=== PATIENT | male | born 1945 | race Caucasian/White ===

== ENCOUNTER 2022-01-08 00:45 | Emergency (ER) | payer OTHER, MEDICARE, SELFPAY ==
[2022-01-08 00:54] VITALS: BP 162/72; PULSE 84; RESP 22; TEMP 36.6; O2SAT 99
[2022-01-08] MEDS: OXYMETAZOLINE NASAL SPRAY 15 ML 2 SPRAYS NASAL (02:45)
--- NOTE | 2022-01-08 02:48 | PC.NURSE ---
Pt arrived with nose clamp in place with cotton ball from home saturated in blood. removed from R nare and small clot noted on the interior of the R nare. Bleeding controlled at this time. afrin soaked cotton placed and pt ambulated without further bleeding or complication.
[2022-01-08 02:58] VITALS: BP 158/74; PULSE 80; RESP 16; O2SAT 97
--- NOTE | 2022-01-08 03:04 | ED.EPISTAXIS ---
HPI - Epistaxis General Chief complaint: Nasal Problem Stated complaint: Bloody nose that wont stop Time Seen by Provider: 01/08/22 01:13 Source: patient Mode of arrival: Ambulatory History of Present Illness HPI Narrative: 76-year-old male nonsmoker with history of skin cancer and prior Mohs surgery presents with a spontaneous nose bleed that was rather significant earlier in the day but now has slowed. He does not take any blood thinners. He states he blood the significant amount earlier and has been bit lightheaded. He denies any trauma or injury and states that he merely sneezed and started bleeding. 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 He is otherwise well and free of complaint Related Data Allergies Allergy/AdvReac Type Severity Reaction Status Date / Time No Known Drug Allergies Allergy Verified 01/08/22 00:58 Review of Systems Review of Systems Narrative: GENERAL: See HPI HEENT: See HP RESPIRATORY: Denies dyspnea, cough, wheezing, hemoptysis, sputum. CARDIOVASCULAR: Denies chest pain, palpitations, orthopnea, edema, GASTROINTESTINAL: Denies nausea, vomiting, abdominal pain, diarrhea, constipation, melena. : Denies dysuria, frequency, incontinence, hematuria, urinary retention. MUSCULOSKELETAL: denies weakness, joint pain, or bony pain SKIN: Denies rash, skin lesions, or other NEUROLOGIC: Denies weakness, headache, numbness, change in speech, confusion, seizures, incoordination. PSYCHIATRIC: No concerning psychosocial issues. 12 point review of systems is negative except for those stated above Exam Narrative Exam Narrative: GEN: AOx3 and in mild distress EYES: Pupils are equal, round, and reactive to light and accommodation. Extraoccular muscles are intact bilaterally. There is no subconjunctival hemorrhage or exudate. ENT: Patient presents with nasal clamp and fresh blood on the towel. One clamp is removed there are fresh clots noted, source of bleeding appears to be anterior nasal septum, very minimal active bleeding CHEST: Lungs are clear to auscultation bilaterally and free of wheezes, rales, or rhonchi. Heart rate is regular rhythm, there are no murmurs, clicks, rubs, or gallops. There is no chest wall tenderness. ABD: Abdomen is soft and nontender. There is no guarding or rebound. Bowel sounds are normal in all 4 quadrants. There is no mass or organomegaly. EXT: Full painless ROM of all extremities with no loss of sensation or strength. SKIN: Warm, pink, and dry. No erythema or rash Initial Vital Signs Initial Vital Signs: Vital Signs Temperature 97.9 F 01/08/22 00:54 Pulse Rate 84 01/08/22 00:54 Respiratory Rate 22 01/08/22 00:54 Blood Pressure 162/72 H 01/08/22 00:54 Pulse Oximetry 99 01/08/22 00:54 Procedures Epistaxis Control Nostril: right Nose Prepped With: oxymetazoline Direct Inspection: yes and anterior source identified Clots Removed by: suction Cautery Used: none Patient Tolerated Procedure: well Course Course Course Narrative: On initial exam clot removed and only minor bleeding noted, cotton ball soaked in Afrin placed with pressure for 20 minutes and patient was re-evaluated, no active bleeding noted. Patient was observed for bit more time, then ambulated to the department without recurrence of bleeding. Patient encouraged to replace cotton with Afrin until he gets home and given extensive return precautions Orders Ordered: Discontinued Medications Oxymetazoline HCl (Oxymetazoline Nasal [place] 15 Ml) 2 sprays NASAL NOW ONE Stop: 01/08/22 01:50 Last Admin: 01/08/22 02:45 Dose: 2 sprays Documented by: MARTÍN Silver Nitrate/Potassium Nitrate (Silver Nitrate Stick) 1 each TOP NOW ONE Stop: 01/08/22 01:50 Last Admin: 01/08/22 02:45 Dose: Not Given Documented by: MARTÍN Vital Signs Vital signs: Vital Signs - 8 hr 01/08/22 00:54 01/08/22 02:58 Temperature 97.9 F Pulse Rate 84 80 Respiratory Rate 22 16 Blood Pressure 162/72 H 158/74 H Pulse Oximetry 99 97 Discharge Plan Departure Patient Disposition: Home Clinical Impression: Epistaxis Instructions: DI for Nosebleed Activity Restrictions/Additional Instructions: *You have been diagnosed with [ acute anterior epistaxis ] *What to do: * do not blow your nose, stick your finger in her nose, or disturb nose for the next 24 hr. If you must sneeze please sneeze out your mouth like we talked about *Follow up with your primary care provider or ENT doctor in 2-3 days, call for an appointment. Let them know you were seen in the Emergency Department and that we ask that you be seen in follow up *Return to ER if you should have any new, worsening or concerning symptoms * if you are bleeding starts again at home please place a portion of a cotton ball in your nostril and squirt some of the Afrin you were given in your nose. Apply the nose clamp and uses a watch or o'clock to time yourself for 15 min. At the end 15 min recheck for bleeding, if you continue to bleed please repeat the process for another 15 min. If at the end of 30 min you still have bleeding you should return to the emergency department Referrals: Dustin Chris MD [Physician] -
== END 2022-01-08 03:07 | disposition home or self-care (01) ==
PROVIDERS: Emergency Provider Emergency Medicine
DX: R04.0 Epistaxis (principal)
CPT/HCPCS: 30901; 99283; A9270

== ENCOUNTER 2022-09-04 03:04 | Emergency (ER) | payer OTHER, MEDICARE, SELFPAY ==
[2022-09-04 03:10] VITALS: BP 182/77; PULSE 56; RESP 18; TEMP 36.5; O2SAT 100; BMI 27.3
--- NOTE | 2022-09-04 03:27 | DI.CT.S_ITS ---
PROCEDURE: CT ABDOMEN PELVIS W CON INDICATIONS: IV contrast only/right lower quadrant pain TECHNIQUE: After the administration of IV contrast, axial sections were acquired from the lung bases to the pubic symphysis. Coronal and sagittal reformats were performed. For radiation dose reduction, the following was used: automated exposure control, adjustment of mA and/or kV according to patient size. COMPARISON: Outside Film, NM, PET NECK TO MID THIGH, 11/20/2021, 14:44. Outside Film, CT, CT ABDOMEN PELVIS WITH CONTRAST, 11/20/2021, 15:14. FINDINGS: Image quality: Excellent. Lung bases: Unremarkable. Heart: No significant findings. Small hiatal hernia. ABDOMEN: Liver: Small cyst in the left lobe are unchanged. Gallbladder: Unremarkable. Biliary ducts: Unremarkable. Pancreas: Unremarkable. Spleen: Calcification at the superior spleen, unchanged. Adrenal Glands: No nodule. Kidneys and Ureters: Obstructing calculus in the mid right ureter measuring 0.3 cm, (2/52). There is minimal upstream hydroureter. There is mild right hydronephrosis with perinephric stranding. The right kidney enhancement is slightly diminished compared to the left. Probable bilateral peripelvic cysts. No additional kidney stones identified. Stomach and Bowel: Diverticulosis. No diverticulitis. The appendix is not dilated. No small bowel obstruction. Peritoneum: No abnormal intraperitoneal fluid. No free air. Ventral Wall: No hernia. Abdominal Nodes: No retroperitoneal or mesenteric adenopathy by size criteria. Vessels: No aortic aneurysm. Minimal ectasia. Extensive calcified and noncalcified atherosclerotic plaque. IVC is unremarkable. PELVIS: Pelvic Organs: Prostate fiducial markers. Bladder: Small bladder diverticuli. No bladder stone. Pelvic Nodes: No enlarged lymph nodes. Miscellaneous: No inguinal hernias are seen. Bones: No suspicious lesion identified. IMPRESSION: 1. Right mid ureter obstructing kidney stone measuring at 0.3 cm. Mild right hydronephrosis. 2. No additional kidney stones identified. This report is concordant with the overnight preliminary interpretation. Dictated by: Kareem Tilley M.D. on 09/04/2022 at 8:30 Approved by: Kareem Tilley M.D. on 09/04/2022 at 8:38
--- NOTE | 2022-09-04 03:28 | ED_ITS ---
HPI - Abdominal Pain General Chief Complaint: Abdominal Pain Stated Complaint: extreme lower back pain, abd pain, vomiting Time Seen by Provider: 09/04/22 03:21 Source: patient Mode of arrival: Ambulatory History of Present Illness HPI narrative: Patient brought here by from home for complaints of sudden-onset right lower quadrant pain with nausea and sweating that started 3 hours ago. Awoke him from his sleep. Went to bed without any complaints. Pain does radiate down to the right testicle area. At times pain with movement and sometimes with palpation. Does not radiate to the back. No syncope. No prior history of abdominal surgical history or kidney stones. No aortic abdominal aneurysm. Related Data Previous Rx's Medication Instructions Recorded hydrocodone 5 mg-acetaminophen 325 1 tab PO Q6H PRN pain #20 tabs 09/04/22 mg tablet hydrocodone 5 mg-acetaminophen 325 1 tab PO Q6H PRN pain #20 tabs 09/04/22 mg tablet ibuprofen 600 mg tablet 600 mg PO Q6H PRN fever or pain 09/04/22 #24 tabs ondansetron 4 mg disintegrating 4 mg PO Q8H PRN nausea and 09/04/22 tablet vomiting #15 tabs tamsulosin 0.4 mg capsule 0.4 mg PO DAILY #7 caps 09/04/22 Allergies Allergy/AdvReac Type Severity Reaction Status Date / Time No Known Drug Allergies Allergy Verified 01/08/22 00:58 Review of Systems Review of Systems Narrative: GENERAL: negative chills, fatigue, malaise, fever, positive sweats. HEENT: negative sinus pain, ear pain, sore throat RESPIRATORY: negative dyspnea, cough CARDIOVASCULAR: negative chest pain, palpitations GASTROINTESTINAL: Positive nausea, vomiting, abdominal pain : negative dysuria, frequency, hematuria MUSCULOSKELETAL: negative muscle or bony pain SKIN: negative rash, skin lesions NEUROLOGIC: negative weakness, numbness ROS Unobtainable: All systems reviewed & are unremarkable except as noted in HPI and below Patient History Social History Smoking Status: Never smoker Smoking Status: Never smoker alcohol intake frequency: holidays/special occasions only Substance Use Type: does not use Exam Narrative Exam Narrative: GENERAL: in no distress, not toxic not dyspneic HEAD: Normocephalic. EYES: Pupils equal round No scleral icterus. ENT: Mucous membranes moist. NECK: Trachea midline. CARDIOVASCULAR: Regular rate and rhythm without murmurs RESPIRATORY: Clear to auscultation. Breath sounds equal bilaterally. No wheezes, rales, or rhonchi. GASTROINTESTINAL: Abdomen soft, reproducible right lower quadrant tenderness. Positive McBurney point tenderness. No peritoneal signs. No pain out of proportion to exam. Bowel sounds are present. EXTREMITIES: No gross deformities. BACK: No flank tenderness. NEURO: AOx4. SKIN: Warm and dry PSYCH: Not anxious, is cooperative Initial Vital Signs Initial Vital Signs: Vital Signs Temperature 97.7 F 09/04/22 03:10 Pulse Rate 56 L 09/04/22 03:10 Respiratory Rate 18 09/04/22 03:10 Blood Pressure 182/77 H 09/04/22 03:10 Pulse Oximetry 100 09/04/22 03:10 Oxygen Delivery Method 09/04/22 03:10 Course Orders Ordered: Discontinued Medications Sodium Chloride (Normal Saline 0.9%) 1,000 mls @ 1,000 mls/hr IV BOLUS ONE Stop: 09/04/22 04:25 Last Infusion: 09/04/22 05:19 Dose: 0 mls/hr Documented By: Admin: 09/04/22 03:36 Dose: 1,000 mls/hr Documented By: LAURA Ketorolac Tromethamine (Ketorolac 30 Mg/Ml Vial) 15 mg IV NOW ONE Stop: 09/04/22 05:11 Last Admin: 09/04/22 05:19 Dose: 15 mg Documented By: LAURA Morphine Sulfate (Morphine 4 Mg/Ml Inj) 4 mg IV NOW ONE Stop: 09/04/22 03:27 Last Admin: 09/04/22 03:37 Dose: 4 mg Documented By: LAURA Ondansetron HCl (Ondansetron 4 Mg/2 Ml Inj) 4 mg IV NOW ONE Stop: 09/04/22 03:27 Last Admin: 09/04/22 03:36 Dose: 4 mg Documented By: ALURA Tamsulosin HCl (Tamsulosin 0.4 Mg Capsule) 0.4 mg PO NOW ONE Stop: 09/04/22 05:11 Last Admin: 09/04/22 05:19 Dose: 0.4 mg Documented By: LAURA Vital Signs Vital signs: Vital Signs - 8 hr 09/04/22 03:10 Temperature 97.7 F Pulse Rate 56 L Respiratory Rate 18 Blood Pressure 182/77 H Pulse Oximetry 100 Oxygen Delivery Method Room Air MDM - Abdominal Pain Lab Data 09/04/22 03:15 09/04/22 03:15 Labs: Lab Results 09/04/22 09/04/22 Range/Units 03:15 03:15 WBC 11.4 H (4.5-11.0) X10^3/uL RBC 4.07 L (4.5-5.9) X10^6/uL Hgb 13.0 L (13.5-17.5) g/dL Hct 38.0 L (41-53) % MCV 93.3 (80-100) fL MCH 31.8 (26-34) PG MCHC 34.1 (30-36) % RDW 13.5 (11.6-14.8) % Plt Count 199 (150-400) X10^3/uL Neut % (Auto) 85.0 H (50-75) % Lymph % (Auto) 7.6 L (25-40) % [place] % (Auto) 5.4 (3-14) % Eos % (Auto) 1.9 L (2-4) % Baso % (Auto) 0.1 (0-2) % Neut # (Auto) 9700 H (6081-0633) /uL Lymph # (Auto) 900 L (4798-1466) /uL [place] # (Auto) 600 (0-900) /uL Eos # (Auto) 200 (0-450) /uL Baso # (Auto) 0 (0-100) /uL Sodium 139 (137-145) mmol/L Potassium 4.4 (3.4-5.1) mmol/L Chloride 100 (98-107) mmol/L Carbon Dioxide 28 (22-32) mmol/L BUN 30 H (9-20) mg/dL Creatinine 0.98 (0.66-1.25) mg/dL Estimated GFR > 60 (>60) mL/min BUN/Creatinine Ratio 30.6 H (6-22) Glucose 324 H (80-110) mg/dL Calcium 9.7 (8.4-10.2) mg/dL Total Bilirubin 0.6 (0.2-1.3) mg/dL AST 32 (17-59) IU/L ALT 34 (<50) IU/L Alkaline Phosphatase 122 (38-126) U/L Total Protein 7.5 (6.3-8.2) g/dL Albumin 4.4 (3.5-5.0) g/dL Globulin 3.1 (1.7-4.1) g/dL Albumin/Globulin Ratio 1.4 (1.0-2.8) Imaging Data CT scan - abdomen/pelvis: Radiologist's Impression: Mild right hydro ureteral nephrosis and perinephric/periureteral inflammatory changes with an obstructing 3 mm mid ureteral calculus. Treatment and Disposition Social Determinants of Health that impact treatment or disposition: None Shared decision making:: Patient and MDM Narrative Medical decision making narrative: Patient brought here by from home for complaints of sudden-onset right lower quadrant pain with nausea and sweating that started 3 hours ago. Awoke him from his sleep. Went to bed without any complaints. Pain does radiate down to the right testicle area. At times pain with movement and sometimes with palpation. Does not radiate to the back. No syncope. No prior history of abdominal surgical history or kidney stones. No aortic abdominal aneurysm. After exam and history and evaluation. CBC CMP urinalysis CT abdomen and pelvis/IV contrast/Zofran morphine have been ordered. MDM CC: Abdominal pain Complicating co-morbidities: None Data collected from: Patient and Medical records reviewed: No previous visit for abdominal pain or CT scan imaging of abdomen and pelvis Differential considered: Includes but not limited to appendicitis/diverticulitis/cholecystitis/colitis/it perforated bowel/kidney stone/UTI Exam documented above, pertinent findings include: Reproducible McBurney point tenderness/right lower quadrant tenderness Lab Test results independently reviewed as above. Pertinent findings: Normal renal function on CMP, slight leukocytosis on CBC, 11.4 Imaging studies independently reviewed: Mild right hydro ureteral nephrosis and perinephric periureteral inflammatory changes with an 3 mm mid ureteral calculus. Treatments: Morphine normal saline Zofran Re-evaluations: Re-evaluate patient. Pain much better. In no distress. Discussion: Appropriate for discharge home. Exam and laboratory studies and imaging otherwise reassuring. Pain medication IV fluids provided. Patient able to provide urine sample. Return precautions reviewed with patient and . They desire discharge home. Patient already sees urologist at [facility] for his prostate. Dr. Almonte. Reviewed laboratory studies and imaging results with patient and . Diagnosis: Acute ureteral stone Disposition: see below, along with detailed discharge instructions that have been reviewed with patient as well as indications for ED re-evaluation and addit ional outpatient follow up Discharge Plan Departure Patient Disposition: Home Clinical Impression: Right ureteral stone Instructions: DI for Kidney Stones Activity Restrictions/Additional Instructions: No driving or operating machinery this morning or when taking prescribed pain medication. Prescriptions have been sent to your pharmacy to continue today. Pain medication prescription has been printed for you. See your urologist as scheduled. Be sure to filter/strain your urine to try to collect kidney stone to take to the office. Return if worse if any questions or concerns. Prescriptions: New hydrocodone-acetaminophen 5-325 mg tablet 1 tab PO Q6H PRN (Reason: pain) Qty: 20 0RF tamsulosin 0.4 mg capsule 0.4 mg PO DAILY Qty: 7 0RF ibuprofen 600 mg tablet 600 mg PO Q6H PRN (Reason: fever or pain) Qty: 24 0RF ondansetron 4 mg tablet,disintegrating 4 mg PO Q8H PRN (Reason: nausea and vomiting) Qty: 15 0RF hydrocodone-acetaminophen 5-325 mg tablet 1 tab PO Q6H PRN (Reason: pain) Qty: 20 0RF Referrals: Jensen Angeles MD [Primary Care Provider] - Stand Alone Forms: Patient Portal/API
[2022-09-04 03:33] LABS: Add Manual Diff / Slide Review NO; Basophils Absolute Auto 0 /uL (0-100); Basophils Percent Auto 0.1 % (0-2); Eosinophils Absolute Auto 200 /uL (0-450); Eosinophils Percent Auto 1.9 % (2-4); Lymphocytes Absolute Auto 900 /uL (1100-4500); Lymphocytes Percent Auto 7.6 % (25-40); Mean Corpuscular HGB Conc 34.1 % (30-36); Mean Corpuscular Hemoglobin 31.8 PG (26-34); Mean Corpuscular Volume 93.3 fL (80-100); Monocytes Absolute Auto 600 /uL (0-900); Monocytes Percent Auto 5.4 % (3-14); Neutrophils Absolute Auto 9700 /uL (1500-7000); Platelet Count 199 X10^3/uL (150-400); Red Blood Cell Count 4.07 X10^6/uL (4.5-5.9); Red Cell Distribution Width 13.5 % (11.6-14.8); White Blood Cell Count 11.4 X10^3/uL (4.5-11.0)
[2022-09-04] MEDS: SODIUM CHLORIDE 0.9% 1,000 ML 1000 ML IV (03:36)
[2022-09-04] MEDS: ONDANSETRON 4 MG/2 ML INJ IV (03:36)
[2022-09-04] MEDS: MORPHINE 4 MG/ML INJ IV (03:37)
[2022-09-04 03:40] LABS: Alanine Aminotransferase 34 IU/L (<50); Alkaline Phosphatase 122 U/L (38-126); Aspartate Aminotransferase 32 IU/L (17-59); BUN Creatinine Ratio 30.6 (6-22); Bilirubin Total 0.6 mg/dL (0.2-1.3); Blood Urea Nitrogen 30 mg/dL (9-20); Calcium 9.7 mg/dL (8.4-10.2); Carbon Dioxide 28 mmol/L (22-32); Chloride 100 mmol/L (98-107); Estimated Glomerular Filt Rate > 60 mL/min (>60); Glucose 324 mg/dL (80-110); Potassium 4.4 mmol/L (3.4-5.1); Sodium 139 mmol/L (137-145); Total Protein 7.5 g/dL (6.3-8.2)
[2022-09-04] MEDS: TAMSULOSIN 0.4 MG CAPSULE PO (05:19)
[2022-09-04] MEDS: KETOROLAC 30 MG/ML VIAL 15 MG IV (05:19)
[2022-09-05 16:59] LABS: Albumin 4.4 g/dL (3.5-5.0); Albumin Globulin Ratio 1.4 (1.0-2.8); Globulin 3.1 g/dL (1.7-4.1); HEMOLYSIS 24 (0-50)
== END 2022-09-04 05:58 | disposition home or self-care (01) ==
PROVIDERS: Emergency Provider Emergency Medicine; PCP Family Medicine
DX: N20.0 Calculus of kidney (principal)
CPT/HCPCS: 36415; 74177; 80053; 85025; 96361; 96374; 96375; 99284; J1885; J2270; J2405; Q9967

== ENCOUNTER 2023-02-06 18:05 | Emergency (ER) | payer OTHER, MEDICARE, SELFPAY ==
[2023-02-06] VITALS (17 sets, daily range): BP systolic 124–189; BP diastolic 58–85; PULSE 62–80; RESP 14–33; TEMP 36.8; O2SAT 98; BMI 26.6
--- NOTE | 2023-02-06 18:34 | DI.RAD.S_ITS ---
PROCEDURE: XR CHEST 1V INDICATIONS: chest pain TECHNIQUE: One view of the chest was acquired. COMPARISON: None. FINDINGS: Surgical changes and devices: Sternotomy wires and mediastinal clips are present. Lungs and pleura: Elevation of the right hemidiaphragm is of uncertain chronicity. There is horizontal atelectasis at the lung bases. No acute airspace opacity. No pleural effusion or pneumothorax. Mediastinum: Mediastinal contours appear normal. Heart size is normal. Bones and chest wall: No suspicious bony lesions. Overlying soft tissues appear unremarkable. Calcification projecting over the upper abdomen corresponds to prior splenic calcification. IMPRESSION: Elevation of the right hemidiaphragm and bibasilar atelectasis. No acute cardiopulmonary abnormality identified. Approved by: Sung Menjivar M.D. on 02/06/2023 at 20:09
[2023-02-06] MEDS: ASPIRIN 81 MG CHEW TAB 324 MG PO (18:54)
[2023-02-06 19:00] LABS: INR 1.2 (0.9-1.3); Prothrombin Time 14.1 SECONDS (10.1-12.7)
[2023-02-06 19:02] LABS: PTT Partial Thromboplastin Tim 27 SECONDS (26-36)
[2023-02-06 19:04] LABS: Alanine Aminotransferase 30 IU/L (<50); Albumin 4.2 g/dL (3.5-5.0); Albumin Globulin Ratio 1.3 (1.0-2.8); Alkaline Phosphatase 131 U/L (38-126); Aspartate Aminotransferase 29 IU/L (17-59); BUN Creatinine Ratio 27.2 (6-22); Bilirubin Total 0.5 mg/dL (0.2-1.3); Blood Urea Nitrogen 25 mg/dL (9-20); Calcium 9.2 mg/dL (8.4-10.2); Carbon Dioxide 27 mmol/L (22-32); Chloride 102 mmol/L (98-107); Creatine Kinase 83 U/L (55-170); Estimated Glomerular Filt Rate > 60 mL/min (>60); Globulin 3.3 g/dL (1.7-4.1); Glucose 149 mg/dL (80-110); HEMOLYSIS 29 (0-50); Lipase 135 U/L (23-300); Potassium 4.3 mmol/L (3.4-5.1); Sodium 137 mmol/L (137-145); Total Protein 7.5 g/dL (6.3-8.2)
[2023-02-06 19:06] LABS: Add Manual Diff / Slide Review NO; Basophils Absolute Auto 100 /uL (0-100); Basophils Percent Auto 1.1 % (0-2); Eosinophils Absolute Auto 300 /uL (0-450); Eosinophils Percent Auto 4.1 % (2-4); Hematocrit 32.2 % (41-53); Lymphocytes Absolute Auto 700 /uL (1100-4500); Lymphocytes Percent Auto 8.4 % (25-40); Mean Corpuscular HGB Conc 34.1 % (30-36); Mean Corpuscular Hemoglobin 32.4 PG (26-34); Mean Corpuscular Volume 95.2 fL (80-100); Monocytes Absolute Auto 600 /uL (0-900); Monocytes Percent Auto 7.2 % (3-14); Neutrophils Absolute Auto 6800 /uL (1500-7000); Neutrophils Percent Auto 79.2 % (50-75); Platelet Count 212 X10^3/uL (150-400); Red Blood Cell Count 3.39 X10^6/uL (4.5-5.9); Red Cell Distribution Width 15.2 % (11.6-14.8); White Blood Cell Count 8.6 X10^3/uL (4.5-11.0)
[2023-02-06 19:16] LABS: Troponin I < 0.012 ng/mL (0.01-0.034)
--- NOTE | 2023-02-06 21:58 | ED.CHESTPAIN ---
HPI - Chest Pain General Chief Complaint: Chest Pain Stated Complaint: Surgery recently, Chest pain Time Seen by Provider: 02/06/23 21:57 Source: patient and family Mode of arrival: Ambulatory Limitations: no limitations History of Present Illness HPI narrative: Patient is a 77-year-old male mild dementia, history of prostate cancer with chronic indwelling Mart catheter currently on Cipro for UTI started yesterday, recent 4 vessel CABG done at [facility] 22 days ago presents today with right-sided chest discomfort and leg weakness ongoing for 1 week. reports that for the last 1 week he is had difficulty ambulating for to the right leg shakes and his legs wobble he is unsteady. No change in mentation. Mostly happens movement. However today he is having increasing right-sided chest pain and shortness of breath when he walks. He appears comfortable now. He denies any fever or chills. Was seen by physician yesterday for prostate cancer who checked a urinalysis and started him on Cipro. He is currently afebrile. He is also at his baseline mental status per she is very pleasant and cooperative Related Data Previous Rx's Medication Instructions Recorded hydrocodone 5 mg-acetaminophen 325 1 tab PO Q6H PRN pain #20 tabs 09/04/22 mg tablet hydrocodone 5 mg-acetaminophen 325 1 tab PO Q6H PRN pain #20 tabs 09/04/22 mg tablet ibuprofen 600 mg tablet 600 mg PO Q6H PRN fever or pain 09/04/22 #24 tabs ondansetron 4 mg disintegrating 4 mg PO Q8H PRN nausea and 09/04/22 tablet vomiting #15 tabs tamsulosin 0.4 mg capsule 0.4 mg PO DAILY #7 caps 09/04/22 Allergies Allergy/AdvReac Type Severity Reaction Status Date / Time No Known Drug Allergies Allergy Verified 01/08/22 00:58 Review of Systems Review of Systems ROS Unobtainable: All systems reviewed & are unremarkable except as noted in HPI and below Patient History Social History Smoking Status: Never smoker Smoking Status: Never smoker alcohol intake frequency: holidays/special occasions only Substance Use Type: does not use Exam Initial Vital Signs Initial Vital Signs: Vital Signs Temperature 98.3 F 02/06/23 18:22 Pulse Rate 72 02/06/23 18:22 Respiratory Rate 18 02/06/23 18:22 Blood Pressure 127/70 02/06/23 18:22 Pulse Oximetry 98 02/06/23 18:22 Oxygen Delivery Method Room Air 02/06/23 18:22 GENERAL: Alert pleasant 77-year-old and in no acute distress. HEENT: Head atraumatic,EOMI, pupils reactive, face symmetric, moist mucous membranes CARDIOVASCULAR: Regular rate and rhythm without murmurs, rubs or gallops. RESPIRATORY: Breath sounds equal bilaterally, no wheezes rales or rhonchi. ABDOMEN: Soft, nontender. Normoactive bowel sounds all 4 quadrants. No guarding or rebound. : Mart catheter in place dark urine EXTREMITIES: Normal range of motion, no clubbing or edema. Neurovascularly intact NEUROLOGICAL: Alert and oriented x4.Normal gait and speech. Cranial nerves II through XII grossly intact. Good [id number] slight weakness in both lower extremities able to do civb-[id number] without assistance, legs do not drip to ground but obviously require more effort than more no dysarthria or aphasia, sensation in tact to soft touch bilaterally, no visual changes, no facial droop] SKIN: Incision site clean and dry healing no erythema or sign of infection Scores NIH Stroke Scale Level of Conciousness: Alert, keenly responsive Ask month/age: Answers both questions correctly. Open/close eyes, close hand: Performs both tasks correctly Best gaze horizontal: Normal Visual perez: No visual loss Facial palsy: Normal symetrical movement Left arm drift: No drift for full 10 sec Right arm drift: No drift for full 10 sec Left leg drift: No drift for full 5 sec Right leg drift: No drift for full 5 sec Limb ataxia: Absent Sensory on face/arms/legs: Normal, no sensory loss Best language: No aphasia, normal Dysarthria: Normal Extinction or inattention: No abnormality Total NIH Stroke scale score: 0 Course Orders Ordered: ED Orders 02/06/23 23:40 CT angio chest PE protocol Stat CT head/brain wo con Stat 02/07/23 00:00 Urinalysis and Microscopic Stat Urine Culture Stat Discontinued Medications Aspirin (Aspirin 81 Mg Chew Tab) 324 mg PO NOW ONE Stop: 02/06/23 18:35 Last Admin: 02/06/23 18:54 Dose: 324 mg Documented By: SB Vital Signs Vital signs: Vital Signs - 8 hr 02/06/23 21:30 02/06/23 21:31 02/06/23 21:31 Pulse Rate 64 64 Respiratory Rate 33 H 19 Blood Pressure 138/65 Pulse Oximetry Oxygen Delivery Method 02/06/23 22:00 02/06/23 22:00 02/06/23 22:30 Pulse Rate 67 63 Respiratory Rate 19 14 Blood Pressure 140/65 Pulse Oximetry Oxygen Delivery Method 02/06/23 22:31 02/06/23 22:31 02/06/23 23:00 Pulse Rate 65 62 Respiratory Rate 16 17 Blood Pressure 189/85 H Pulse Oximetry Oxygen Delivery Method 02/06/23 23:30 02/06/23 23:31 02/06/23 23:44 Pulse Rate 65 66 64 Respiratory Rate 23 19 20 Blood Pressure 171/77 H Pulse Oximetry Oxygen Delivery Method 02/07/23 00:31 02/07/23 02:08 02/07/23 02:31 Pulse Rate 69 67 65 Respiratory Rate 20 19 22 Blood Pressure 191/80 H 183/84 H 180/73 H Pulse Oximetry 98 98 Oxygen Delivery Method Room Air Room Air MDM - Chest Pain Lab Data 02/06/23 18:45 02/06/23 18:45 Labs: Lab Results 02/06/23 02/06/23 02/06/23 Range/Units 18:45 18:45 18:45 WBC 8.6 (4.5-11.0) X10^3/uL RBC 3.39 L (4.5-5.9) X10^6/uL Hgb 11.0 L (13.5-17.5) g/dL Hct 32.2 L (41-53) % MCV 95.2 (80-100) fL MCH 32.4 (26-34) PG MCHC 34.1 (30-36) % RDW 15.2 H (11.6-14.8) % Plt Count 212 (150-400) X10^3/uL Neut % (Auto) 79.2 H (50-75) % Lymph % (Auto) 8.4 L (25-40) % [place] % (Auto) 7.2 (3-14) % Eos % (Auto) 4.1 H (2-4) % Baso % (Auto) 1.1 (0-2) % Neut # (Auto) 6800 (0553-4393) /uL Lymph # (Auto) 700 L (9189-9890) /uL [place] # (Auto) 600 (0-900) /uL Eos # (Auto) 300 (0-450) /uL Baso # (Auto) 100 (0-100) /uL PT 14.1 H (10.1-12.7) SECONDS INR 1.2 (0.9-1.3) APTT 27 (26-36) SECONDS Sodium 137 (137-145) mmol/L Potassium 4.3 (3.4-5.1) mmol/L Chloride 102 (98-107) mmol/L Carbon Dioxide 27 (22-32) mmol/L BUN 25 H (9-20) mg/dL Creatinine 0.92 (0.66-1.25) mg/dL Estimated GFR > 60 (>60) mL/min BUN/Creatinine Ratio 27.2 H (6-22) Glucose 149 H (80-110) mg/dL Calcium 9.2 (8.4-10.2) mg/dL Magnesium 2.0 (1.6-2.3) mg/dL Total Bilirubin 0.5 (0.2-1.3) mg/dL AST 29 (17-59) IU/L ALT 30 (<50) IU/L Alkaline Phosphatase 131 H (38-126) U/L Total Creatine Kinase 83 (55-170) U/L CK-MB (CK-2) TNP CK-MB (CK-2) Rel Index TNP Troponin I < 0.012 (0.01-0.034) ng/mL Total Protein 7.5 (6.3-8.2) g/dL Albumin 4.2 (3.5-5.0) g/dL Globulin 3.3 (1.7-4.1) g/dL Albumin/Globulin Ratio 1.3 (1.0-2.8) Lipase 135 (23-300) U/L Urine Color Urine Appearance Urine pH (4.5-8.0) Ur Specific [place] (1.000-1.035) Urine Protein (Negative) Urine Glucose (UA) (Negative) g/dL Urine Ketones (NEGATIVE) Urine Occult Blood (Negative) Urine Nitrate (Negative) Urine Bilirubin (NEGATIVE) Urine Urobilinogen (0.2) E.U./dL Ur Leukocyte Esterase (NEGATIVE) Urine RBC (0-5/HPF) Urine WBC (0-5/HPF) Ur Squamous Epith Cells (0-5/HPF) Urine Bacteria (None) Ur Culture Indicated? 02/07/23 Range/Units 00:00 WBC (4.5-11.0) X10^3/uL RBC (4.5-5.9) X10^6/uL Hgb (13.5-17.5) g/dL Hct (41-53) % MCV (80-100) fL MCH (26-34) PG MCHC (30-36) % RDW (11.6-14.8) % Plt Count (150-400) X10^3/uL Neut % (Auto) (50-75) % Lymph % (Auto) (25-40) % [place] % (Auto) (3-14) % Eos % (Auto) (2-4) % Baso % (Auto) (0-2) % Neut # (Auto) (9626-6105) /uL Lymph # (Auto) (2877-2159) /uL [place] # (Auto) (0-900) /uL Eos # (Auto) (0-450) /uL Baso # (Auto) (0-100) /uL PT (10.1-12.7) SECONDS INR (0.9-1.3) APTT (26-36) SECONDS Sodium (137-145) mmol/L Potassium (3.4-5.1) mmol/L Chloride (98-107) mmol/L Carbon Dioxide (22-32) mmol/L BUN (9-20) mg/dL Creatinine (0.66-1.25) mg/dL Estimated GFR (>60) mL/min BUN/Creatinine Ratio (6-22) Glucose (80-110) mg/dL Calcium (8.4-10.2) mg/dL Magnesium (1.6-2.3) mg/dL Total Bilirubin (0.2-1.3) mg/dL AST (17-59) IU/L ALT (<50) IU/L Alkaline Phosphatase (38-126) U/L Total Creatine Kinase (55-170) U/L CK-MB (CK-2) CK-MB (CK-2) Rel Index Troponin I (0.01-0.034) ng/mL Total Protein (6.3-8.2) g/dL Albumin (3.5-5.0) g/dL Globulin (1.7-4.1) g/dL Albumin/Globulin Ratio (1.0-2.8) Lipase (23-300) U/L Urine Color Yellow Urine Appearance Clear Urine pH 7.0 (4.5-8.0) Ur Specific [place] 1.020 (1.000-1.035) Urine Protein Trace H (Negative) Urine Glucose (UA) Negative (Negative) g/dL Urine Ketones Negative (NEGATIVE) Urine Occult Blood 3+ H (Negative) Urine Nitrate Negative (Negative) Urine Bilirubin Negative (NEGATIVE) Urine Urobilinogen 0.2 (0.2) E.U./dL Ur Leukocyte Esterase 1+ H (NEGATIVE) Urine RBC 5-10/hpf H (0-5/HPF) Urine WBC 10-30/hpf H (0-5/HPF) Ur Squamous Epith Cells 1-5 /hpf (0-5/HPF) Urine Bacteria Few (2-10) H (None) Ur Culture Indicated? Specimen cultured Point of Care Testing Glucose POC 159 Urine Dip Bedside Urine Glucose Negative Bedside Urine Bilirubin - Negative Bedside Urine Ketone - Negative Urine Specific [place] 1.010 Bedside Urine Occult Blood +++ Bedside Urine pH 6.5 Bedside Urine Protein - Negative Bedside Urine Urobilinogen - Negative Bedside Urine Nitrite - Negative Bedside Urine Leukocytes +++ [address] scan - head: Radiologist's Impression: PROCEDURE:? CT HEAD/BRAIN WO CON ? INDICATIONS:? right leg weakness ? TECHNIQUE:? Noncontrast 4.5 mm thick angled axial sections acquired from the foramen magnum to the vertex, with coronal and sagittal reformats.? For radiation dose reduction, the following was used:? automated exposure control, adjustment of mA and/or kV according to patient size.? ? COMPARISON:? [facility], CR, XR CHEST 1V, 02/06/2023, 18:41.? [facility], CT, CT ANGIO CHEST PE PROTOCOL, 02/07/2023, 0:45. ? FINDINGS:? Image quality:? Excellent.? ? CSF spaces:? Basal cisterns are patent.? No extra-axial fluid collections.? The ventricles are symmetric in size and shape.? ? Brain:? No intracranial bleeds or masses.? There is cerebral volume loss for age, with resultant ventricular and sulcal prominence.? There are periventricular and deep white matter chronic small vessel ischemic changes.? Focal low density can be seen involving the right periventricular white matter within the posterior cerebral hemisphere There is intracranial internal carotid artery atherosclerosis.? ? Skull and face:? Calvarium and visualized facial bones appear intact, without suspicious lesions.? ? Sinuses:? Visualized sinuses and mastoids are clear.? ? IMPRESSION:? No acute intracranial hemorrhage is seen.? ? No acute intracranial process is seen.? ? 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 ? If there is strong clinical suspicion for an acute stroke, please consider a brain MRI for further evaluation, as it is more sensitive (assuming that there is no contraindication to MRI). ? ? Dictated by: Salomon Mao M.D. on 02/07/2023 at 0:30 ? ? CT scan - chest: Radiologist's Impression: PROCEDURE:? CT ANGIO CHEST PE PROTOCOL ? INDICATIONS:? right pain post cabg ? TECHNIQUE:? After the administration of intravenous contrast, 2 mm thick sections acquired from the pulmonary apices to the posterior costophrenic angles.? 3-dimensional maximum intensity projection (MIP) coronal and sagittal reformats were then acquired through the thorax.? For radiation dose reduction, the following was used:? automated exposure control, adjustment of mA and/or kV according to patient size.? ? COMPARISON:? [facility], CT, CT HEAD/BRAIN WO CON, 02/07/2023, 0:45.? [facility], CR, XR CHEST 1V, 02/06/2023, 18:41.? [facility], CT, CT ABDOMEN PELVIS W CON, 09/04/2022, 3:47.? Outside Film, NM, PET NECK TO MID THIGH, 11/20/2021, 14:44. ? FINDINGS:? Image quality:? Excellent.? ? Pulmonary arteries:? Pulmonary arteries are normal in size, and demonstrate no intraluminal filling defects to suggest central pulmonary embolism.? ? Lungs and pleura:? Mild dependent atelectasis can be seen.? No pleural effusions or pneumothorax.? Central and peripheral airways are patent.? ? Mediastinum:? Post CABG changes are seen.? Heart size is normal, without pericardial effusion.? No mediastinal or hilar adenopathy.? Thoracic aorta is normal in caliber and enhancement.? Esophagus is normal in caliber.? There is a small hiatal hernia.? ? Bones and chest wall:? Post sternotomy changes are seen, without bony bridging of the sternum.? No suspicious bony lesions.? Ribs and thoracic spine appear intact throughout.? Age-appropriate bony degenerative changes are seen.? Thyroid gland demonstrates no significant abnormality.? No axillary or supraclavicular adenopathy.? ? Abdomen:? Stable calcification can be seen along the anterior medial spleen. The visualized portions of the upper abdominal structures are otherwise unremarkable for imaging technique. ? ? IMPRESSION:? Negative for pulmonary embolism. ? No significant aortic abnormality is seen. ? Recent CABG changes. ? ? ? Additional findings:? Small hiatal hernia Stable calcification along the anterior medial spleen ? Dictated by: Salomon Mao M.D. on 02/07/2023 at 0:32 ?? Chest x-ray: Radiologist's Impression: PROCEDURE:? XR CHEST 1V ? INDICATIONS:? chest pain ? TECHNIQUE:? One view of the chest was acquired.? ? COMPARISON:? None. ? FINDINGS:? ? Surgical changes and devices:? Sternotomy wires and mediastinal clips are present. ? Lungs and pleura:? Elevation of the right hemidiaphragm is of uncertain chronicity.? There is horizontal atelectasis at the lung bases.? No acute airspace opacity.? No pleural effusion or pneumothorax. ? Mediastinum:? Mediastinal contours appear normal.? Heart size is normal.? ? Bones and chest wall:? No suspicious bony lesions.? Overlying soft tissues appear unremarkable.? Calcification projecting over the upper abdomen corresponds to prior splenic calcification. ? IMPRESSION:? Elevation of the right hemidiaphragm and bibasilar atelectasis.? No acute cardiopulmonary abnormality identified. ? ? ? Approved by: Sung Menjivar M.D. on 02/06/2023 at 20:09? ECG Data Interpretation: Normal sinus rhythm rate 68 HI interval 170 QRS [address] changes or T-wave inversions MDM Narrative Medical decision making narrative: Patient is 77-year-old male with recent 4 vessel CABG presenting today with right-sided chest discomfort and increasing leg weakness. reports that he actually does have some ongoing right-sided leg weakness that happened especially if he is tired it gets worse seems to be little bit worse now. Blood work is overall reassuring no elevation of troponin no leukocytosis. CT angio was done and ruled out pulmonary embolism. He has no evidence of congestive heart failure no signs of fluid overload. Head CT was done for leg weakness his NIH stroke scale is 0 although both legs appear weak. CT noncontrast head shows possible right hemisphere remote infarct. He is having more trouble on the right side this is unlikely to be related. Patient has no evidence of sepsis currently being treated with Cipro for UTI and indwelling Mart catheter. At this time he is only taken 1 or 2 doses of the antibiotic. No evidence of sepsis. Other blood work has been reviewed no other clinically significant abnormalities. Patient ambulated without any assistance walked quite quickly around the emergency department and did very well. At this time I recommend that he continue taking his Cipro which may be causing him to be slightly more weak. He can follow-up with his surgeon next week as scheduled. Right-sided chest pain today is likely secondary to surgery. Discharge Plan Departure Patient Disposition: Home Clinical Impression: Atypical chest pain Instructions: DI for Atypical Chest Pain Activity Restrictions/Additional Instructions: *You have been diagnosed with atypical chest pain *What to do: At this time workup in the ED is reassuring. Please follow-up with her cardiothoracic surgeon. *Continue to take medications as directed Please take ciprofloxacin as already prescribed *Follow up with your primary care provider in 2-3 days or call [phone] *Return to ER if you should have increasing pain, weakness, confusion or any new, worsening or concerning symptoms Prescriptions: No Action hydrocodone-acetaminophen 5-325 mg tablet 1 tab PO Q6H PRN (Reason: pain) Qty: 20 0RF tamsulosin 0.4 mg capsule 0.4 mg PO DAILY Qty: 7 0RF ibuprofen 600 mg tablet 600 mg PO Q6H PRN (Reason: fever or pain) Qty: 24 0RF ondansetron 4 mg tablet,disintegrating 4 mg PO Q8H PRN (Reason: nausea and vomiting) Qty: 15 0RF hydrocodone-acetaminophen 5-325 mg tablet 1 tab PO Q6H PRN (Reason: pain) Qty: 20 0RF Referrals: Jensen Angeles MD [Primary Care Provider] - Stand Alone Forms: Patient Portal/API
--- NOTE | 2023-02-06 22:14 | PC.NURSE ---
Pt's spouse asked to give home meds. approved long-acting insulin and spouse administered (after POC [id number]). Asked to wait on other PM meds.
--- NOTE | 2023-02-06 23:03 | PC.NURSE ---
Provided new leg bag for Mart catheter
--- NOTE | 2023-02-06 23:28 | PC.NURSE ---
Safe handoff report to CHANDAN Hanson. Pt resting comfortably, denies pain or other concerning symptoms
--- NOTE | 2023-02-06 23:40 | DI.CT.S_ITS ---
PROCEDURE: CT ANGIO CHEST PE PROTOCOL INDICATIONS: right pain post cabg TECHNIQUE: After the administration of intravenous contrast, 2 mm thick sections acquired from the pulmonary apices to the posterior costophrenic angles. 3-dimensional maximum intensity projection (MIP) coronal and sagittal reformats were then acquired through the thorax. For radiation dose reduction, the following was used: automated exposure control, adjustment of mA and/or kV according to patient size. COMPARISON: [facility], CT, CT HEAD/BRAIN WO CON, 02/07/2023, 0:45. [facility], CR, XR CHEST 1V, 02/06/2023, 18:41. [facility], CT, CT ABDOMEN PELVIS W CON, 09/04/2022, 3:47. Outside Film, NM, PET NECK TO MID THIGH, 11/20/2021, 14:44. FINDINGS: Image quality: Excellent. Pulmonary arteries: Pulmonary arteries are normal in size, and demonstrate no intraluminal filling defects to suggest central pulmonary embolism. Lungs and pleura: Mild dependent atelectasis can be seen. No pleural effusions or pneumothorax. Central and peripheral airways are patent. Mediastinum: Post CABG changes are seen. Heart size is normal, without pericardial effusion. No mediastinal or hilar adenopathy. Thoracic aorta is normal in caliber and enhancement. Esophagus is normal in caliber. There is a small hiatal hernia. Bones and chest wall: Post sternotomy changes are seen, without bony bridging of the sternum. No suspicious bony lesions. Ribs and thoracic spine appear intact throughout. Age-appropriate bony degenerative changes are seen. Thyroid gland demonstrates no significant abnormality. No axillary or supraclavicular adenopathy. Abdomen: Stable calcification can be seen along the anterior medial spleen. The visualized portions of the upper abdominal structures are otherwise unremarkable for imaging technique. IMPRESSION: Negative for pulmonary embolism. No significant aortic abnormality is seen. Recent CABG changes. Additional findings: Small hiatal hernia Stable calcification along the anterior medial spleen Dictated by: Salomon Mao M.D. on 02/07/2023 at 0:32 Approved by: Salomon Mao M.D. on 02/07/2023 at 0:35
--- NOTE | 2023-02-06 23:40 | DI.CT.S_ITS ---
PROCEDURE: CT HEAD/BRAIN WO CON INDICATIONS: right leg weakness TECHNIQUE: Noncontrast 4.5 mm thick angled axial sections acquired from the foramen magnum to the vertex, with coronal and sagittal reformats. For radiation dose reduction, the following was used: automated exposure control, adjustment of mA and/or kV according to patient size. COMPARISON: [facility], CR, XR CHEST 1V, 02/06/2023, 18:41. [facility], CT, CT ANGIO CHEST PE PROTOCOL, 02/07/2023, 0:45. FINDINGS: Image quality: Excellent. CSF spaces: Basal cisterns are patent. No extra-axial fluid collections. The ventricles are symmetric in size and shape. Brain: No intracranial bleeds or masses. There is cerebral volume loss for age, with resultant ventricular and sulcal prominence. There are periventricular and deep white matter chronic small vessel ischemic changes. Focal low density can be seen involving the right periventricular white matter within the posterior cerebral hemisphere There is intracranial internal carotid artery atherosclerosis. Skull and face: Calvarium and visualized facial bones appear intact, without suspicious lesions. Sinuses: Visualized sinuses and mastoids are clear. IMPRESSION: No acute intracranial hemorrhage is seen. No acute intracranial process is seen. 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 If there is strong clinical suspicion for an acute stroke, please consider a brain MRI for further evaluation, as it is more sensitive (assuming that there is no contraindication to MRI). Dictated by: Salomon Mao M.D. on 02/07/2023 at 0:30 Approved by: Salomon Mao M.D. on 02/07/2023 at 0:31
[2023-02-07 00:31] VITALS: BP 191/80; PULSE 69; RESP 20
[2023-02-07 00:48] LABS: Appearance Urine UA CLEAR; Bilirubin Urine UA NEGATIVE (NEGATIVE); Color Urine UA YELLOW; Glucose Urine UA NEGATIVE (Negative); Ketones Urine UA NEGATIVE (NEGATIVE); Leukocyte Esterase Urine UA 1+ (NEGATIVE); Nitrite Urine UA NEGATIVE (Negative); Occult Blood Urine UA 3+ (Negative); Protein Urine UA TRACE (Negative); Urobilinogen Urine UA 0.2 E.U./dL (0.2)
[2023-02-07 00:58] LABS: Bacteria Urine Few (2-10); Culture Indicated Urine Specimen Cultured; RBC Urine 5-10/HPF (0-5/HPF); Squamous Epithelial Cell Urine 1-5 /HPF (0-5/HPF); WBC Urine 10-30/HPF (0-5/HPF)
[2023-02-07 02:08] VITALS: BP 183/84; PULSE 67; RESP 19; O2SAT 98
[2023-02-07 02:31] VITALS: BP 180/73; PULSE 65; RESP 22; O2SAT 98
== END 2023-02-07 02:38 | disposition home or self-care (01) ==
PROVIDERS: Emergency Provider Emergency Medicine; PCP Family Medicine
DX: R07.89 Other chest pain (principal); R53.1 Weakness
CPT/HCPCS: 36415; 70450; 71045; 71275; 80053; 81001; 81003; 82550; 82962; 83690; 83735; 84484; 85025; 85610; 85730; 87086; 93005; 99284; Q9967

== ENCOUNTER 2023-03-02 11:35 | Observation (INO) | payer OTHER, MEDICARE, SELFPAY ==
[2023-03-02] VITALS (8 sets, daily range): BP systolic 112–165; BP diastolic 55–85; PULSE 56–75; RESP 13–23; TEMP 36–37.1; O2SAT 97–100; BMI 26.2
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
--- NOTE | 2023-03-02 11:54 | DI.RAD.S_ITS ---
PROCEDURE: XR CHEST 1V INDICATIONS: confusion TECHNIQUE: One view of the chest was acquired. COMPARISON: [facility], CR, XR CHEST 1V, 02/06/2023, 18:41. FINDINGS: Surgical changes and devices: Sternotomy. Lungs and pleura: Lungs are clear. No pleural effusions or pneumothorax. Mediastinum: Mediastinal contours appear normal. Heart size is normal. Bones and chest wall: No suspicious bony lesions. Overlying soft tissues appear unremarkable. IMPRESSION: No acute cardiopulmonary process. Dictated by: Say Rivera M.D. on 03/02/2023 at 12:45 Approved by: Say Rivera M.D. on 03/02/2023 at 12:45
--- NOTE | 2023-03-02 11:54 | DI.CT.S_ITS ---
PROCEDURE: CT HEAD/BRAIN WO CON INDICATIONS: confusion TECHNIQUE: Noncontrast 4.5 mm thick angled axial sections acquired from the foramen magnum to the vertex, with coronal and sagittal reformats. For radiation dose reduction, the following was used: automated exposure control, adjustment of mA and/or kV according to patient size. COMPARISON: [facility], CT, CT HEAD/BRAIN WO CON, 02/07/2023, 0:45. FINDINGS: Image quality: Excellent. CSF spaces: Basal cisterns are patent. No extra-axial fluid collections. The ventricles are symmetric in size and shape. Brain: No intracranial bleeds or masses. There is cerebral volume loss for age, with resultant ventricular and sulcal prominence. There are periventricular and deep white matter chronic small vessel ischemic changes. There is intracranial internal carotid artery atherosclerosis. Skull and face: Calvarium and visualized facial bones appear intact, without suspicious lesions. Sinuses: Visualized sinuses and mastoids are clear. IMPRESSION: No acute intracranial abnormality. Dictated by: Aman Murphy M.D. on 03/02/2023 at 12:45 Approved by: Aman Murphy M.D. on 03/02/2023 at 12:46
[2023-03-02 12:02] LABS: Add Manual Diff / Slide Review NO; Basophils Absolute Auto 0 /uL (0-100); Basophils Percent Auto 0.5 % (0-2); Eosinophils Absolute Auto 200 /uL (0-450); Eosinophils Percent Auto 3.4 % (2-4); Hematocrit 33.4 % (41-53); Hemoglobin 11.2 g/dL (13.5-17.5); Lymphocytes Absolute Auto 600 /uL (1100-4500); Lymphocytes Percent Auto 11.9 % (25-40); Mean Corpuscular HGB Conc 33.6 % (30-36); Mean Corpuscular Hemoglobin 31.7 PG (26-34); Mean Corpuscular Volume 94.3 fL (80-100); Monocytes Absolute Auto 400 /uL (0-900); Monocytes Percent Auto 7.3 % (3-14); Neutrophils Absolute Auto 4100 /uL (1500-7000); Neutrophils Percent Auto 76.9 % (50-75); Platelet Count 198 X10^3/uL (150-400); Red Blood Cell Count 3.54 X10^6/uL (4.5-5.9); White Blood Cell Count 5.4 X10^3/uL (4.5-11.0)
[2023-03-02 12:05] LABS: Appearance Urine UA CLOUDY; Bilirubin Urine UA NEGATIVE (NEGATIVE); Color Urine UA YELLOW; Glucose Urine UA NEGATIVE (Negative); Ketones Urine UA TRACE (NEGATIVE); Leukocyte Esterase Urine UA 2+ (NEGATIVE); Nitrite Urine UA NEGATIVE (Negative); Occult Blood Urine UA 3+ (Negative); Protein Urine UA 3+ (Negative); Specific Gravity Urine UA 1.025 (1.000-1.035)
[2023-03-02 12:10] LABS: Alanine Aminotransferase 40 IU/L (<50); Albumin 4.3 g/dL (3.5-5.0); Albumin Globulin Ratio 1.4 (1.0-2.8); Alkaline Phosphatase 109 U/L (38-126); Aspartate Aminotransferase 38 IU/L (17-59); BUN Creatinine Ratio 37.3 (6-22); Bilirubin Total 0.3 mg/dL (0.2-1.3); Blood Urea Nitrogen 31 mg/dL (9-20); Calcium 9.5 mg/dL (8.4-10.2); Carbon Dioxide 27 mmol/L (22-32); Chloride 104 mmol/L (98-107); Creatine Kinase 273 U/L (55-170); Estimated Glomerular Filt Rate > 60 mL/min (>60); Glucose 157 mg/dL (80-110); HEMOLYSIS < 15 (0-50); Lactate (Lactic Acid) 1.3 mmol/L (0.7-2.1); Potassium 4.2 mmol/L (3.4-5.1); Sodium 139 mmol/L (137-145); Total Protein 7.3 g/dL (6.3-8.2)
[2023-03-02 12:11] LABS: Bacteria Urine Moderate (10-30); Culture Indicated Urine Specimen Cultured; RBC Urine 10-30/HPF (0-5/HPF); Squamous Epithelial Cell Urine None Seen (0-5/HPF); WBC Urine >100/HPF (0-5/HPF)
[2023-03-02 12:22] LABS: Troponin I < 0.012 ng/mL (0.01-0.034)
[2023-03-02 12:27] LABS: Procalcitonin 0.05 ng/mL (<0.5)
[2023-03-02] MEDS: cefTRIAXone 1,000 MG in SODIUM CHLORIDE 0.9% 100 ML 200 MG IV (12:38)
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
[2023-03-02 13:42] LABS: Adenovirus Not Detected (Not Detect); B. parapertussis Not Detected (Not Detecte); Bordetella pertussis Not Detected (Not Detecte); Chlamydophila pneumoniae Not Detected (Not Detect); Coronavirus 229E Not Detected (Not Detect); Coronavirus HKU1 Not Detected (Not Detect); Coronavirus NL 63 Not Detected (Not Detect); Coronavirus OC43 Not Detected (Not Detect); Human Metapneumovirus Not Detected (Not Detect); Human Rhinovirus/Enterovirus Not Detected (Not Detect); Influenza A Not Detected (Not Detect); Influenza B Not Detected (Not Detect); Mycoplasma pneumoniae Not Detected (Not Detect); Parainfluenza Virus 1 Not Detected (Not Detect); Parainfluenza Virus 2 Not Detected (Not Detect); Parainfluenza Virus 3 Not Detected (Not Detect); Parainfluenza Virus 4 Not Detected (Not Detect); Respiratory Syncytial Virus Not Detected (Not Detect); SARS- CoV-2 Not Detected (Not Detecte)
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
--- NOTE | 2023-03-02 16:58 | PC.NURSE ---
Old Mart catheter taken out and replaced with 16f catheter. Patient tolerated well.
[2023-03-02] MEDS: INSULIN LISPRO 100 UNIT/ML 3ML VIAL SUBCUT (17:03)
--- NOTE | 2023-03-02 18:23 | PC.NURSE ---
Day shift: Pt admitted to the floor at 1410. Pt A&Ox2. Unaware of why he is here or what date/year it is. Pt follows directions well from . Mart changed per MD Barba's order. Pt came in with chronic Mart. Changed to hospital Mart. Pt tolerated well. Pt denies pain. BG 176. Insulin given. Spoke with pharmacist Mervin and he changed his nighttime medications to 1800 per his 's request. Will continue to monitor.
[2023-03-02] MEDS: MELATONIN 3 MG TABLET PO (18:48)
[2023-03-02] MEDS: DIVALPROEX ER 250 MG TAB PO (18:48)
[2023-03-02] MEDS: MIRTAZAPINE 15 MG TABLET 7.5 MG PO (18:48)
[2023-03-02] MEDS: INSULIN GLARGINE 100 UNIT/ML 3ML PEN 14 UNIT SUBCUT (18:49)
[2023-03-03 05:29] LABS: Add Manual Diff / Slide Review NO; Basophils Absolute Auto 0 /uL (0-100); Basophils Percent Auto 0.5 % (0-2); Eosinophils Absolute Auto 500 /uL (0-450); Eosinophils Percent Auto 7.1 % (2-4); Hematocrit 34.2 % (41-53); Hemoglobin 11.6 g/dL (13.5-17.5); Lymphocytes Absolute Auto 500 /uL (1100-4500); Lymphocytes Percent Auto 7.5 % (25-40); Mean Corpuscular Volume 94.2 fL (80-100); Monocytes Absolute Auto 400 /uL (0-900); Neutrophils Absolute Auto 5500 /uL (1500-7000); Neutrophils Percent Auto 78.9 % (50-75); Platelet Count 176 X10^3/uL (150-400); Red Blood Cell Count 3.63 X10^6/uL (4.5-5.9)
[2023-03-03 05:48] LABS: Alanine Aminotransferase 35 IU/L (<50); Albumin 3.5 g/dL (3.5-5.0); Albumin Globulin Ratio 1.2 (1.0-2.8); Alkaline Phosphatase 87 U/L (38-126); Aspartate Aminotransferase 32 IU/L (17-59); BUN Creatinine Ratio 31.9 (6-22); Bilirubin Total 0.3 mg/dL (0.2-1.3); Blood Urea Nitrogen 23 mg/dL (9-20); Calcium 8.7 mg/dL (8.4-10.2); Carbon Dioxide 27 mmol/L (22-32); Chloride 106 mmol/L (98-107); Estimated Glomerular Filt Rate > 60 mL/min (>60); Glucose 112 mg/dL (80-110); HEMOLYSIS < 15 (0-50); Potassium 3.9 mmol/L (3.4-5.1); Sodium 138 mmol/L (137-145); Total Protein 6.5 g/dL (6.3-8.2)
[2023-03-03 06:05] LABS: Procalcitonin 0.05 ng/mL (<0.5)
[2023-03-03 06:25] LABS: C-Reactive Protein Quant < 0.5 mg/dL (<1.0)
[2023-03-03] MEDS: ATORVASTATIN 20 MG TABLET 80 MG PO (08:11)
[2023-03-03] MEDS: METFORMIN XR 500 MG TABLET PO (08:11)
[2023-03-03] MEDS: TAMSULOSIN 0.4 MG CAPSULE PO (08:11)
[2023-03-03 08:12] VITALS: BP 109/52; PULSE 76
[2023-03-03] MEDS: METOPROLOL ER 50 MG TABLET PO (08:12)
[2023-03-03] MEDS: ASPIRIN 81 MG CHEW TAB 162 MG PO (08:15)
[2023-03-03] MEDS: INSULIN LISPRO 100 UNIT/ML 3ML VIAL SUBCUT ×3 (08:16→17:09)
--- NOTE | 2023-03-03 08:52 | PM.PN.1 ---
Subjective Subjective Interval history: Patient had sundowning requiring haldol overnight. This morning his is present and he is much more calm. Exam Vital Signs (past 8 hours): Oxygen Delivery Method Room Air Oxygen Flow Rate 0 Narrative Exam Narrative: GENERAL:? Alert pleasant 77-year-old male and in no acute distress. Demented. HEENT: Head atraumatic,EOMI, pupils reactive, face symmetric, moist mucous membranes CARDIOVASCULAR: Regular rate and rhythm without murmurs, rubs or gallops. RESPIRATORY: Breath sounds equal bilaterally, no wheezes rales or rhonchi. ABDOMEN: Soft, nontender.? Normoactive bowel sounds all 4 quadrants.? No guarding or rebound. :? Indwelling [place] catheter EXTREMITIES: Normal range of motion, no clubbing or edema.? Neurovascularly intact NEUROLOGICAL: Alert and oriented x1. Normal gait and speech. Cranial nerves II through XII grossly intact. Normal sensation of all extremities. SKIN: Warm, dry, no laceration, no petechiae, no rashes or lesions. Objective Labs 03/03/23 04:45 03/03/23 04:45 [facility] Social History household members: spouse Smoking Status: Never smoker Assessment & Plan Assessment & Plan narrative: 1. CAUTI with noncompliance of oral medication, acute, present on admission. UTI with chronic Hassan in place. Urine culture positive for pseudomonas. Given dose of fosfomycin and hassan exchanged. 2. Concern for sepsis, ruled out. Acute, present on admission. Blood cultures negative. 3. Delirium in setting of Alzheimer's. Delirium is acute on chronic Alzheimer, present on admission. Continue patient's regular medications for Alzheimer's which consists of Depakote and mirtazapine as well as melatonin. Patient's arranging memory care facilities. 4. Diabetes. Diabetes is chronic however, poor control is acute present on admission. Provide patient's regular medication of metformin and glargine. Also have sliding scale insulin. Measure hemoglobin A1c. 5. Decreased hearing. Chronic. Present on admission. will bring in hearing aids. DVT prophylaxis: Enoxaparin 40 mg subQ daily Code status: Full Surrogate decision makers: Patient's . Dispo: Home with on 03/04. COVID-19 Result date/Date tested (Pos, Neg/Pending): 03/02/23 Quality VTE Deep Vein Thrombosis/Pulmonary Embolism Present on Admission: No
[2023-03-03] MEDS: cefTRIAXone 2,000 MG in SODIUM CHLORIDE 0.9% 100 ML 200 MG IV (09:44)
--- NOTE | 2023-03-03 11:04 | PT.IIE ---
Current Diagnoses Sepsis, unspecified organism (03/02/23) Physical Therapy Inpatient Evaluation/Re-Eval M1 PT/OT-IP Prior Functional Status Start: 03/03/23 11:53 Freq: NEEDED Status: Active Protocol: Document 03/03/23 11:04 AB (Rec: 03/03/23 12:00 AB [id number]) Medical Review Prior Functional Status Medical History Reviewed Yes Communication able to make needs known; with confusion; pt has dx of vacular dementia Mobility and Gait pt stated that he is independent with all mobilities and ambulation without AD indoors/outdoors but occasionally uses a SPC/ FWW for outdoor mobility per spouse: has h/o falls and last fall ~ 2 months ago Social History Household Members spouse Living Arrangements House Number of Floors (Floors) Two Floors Number of Stairs To Enter/Railing? pt stated that he can stay on main level of the house no steps to enter Home Environment Standard Height Toilet,Walk in Shower,Built-In Shower Seat Home Equipment Front Wheel Walker,Straight Cane,Hand Held Shower,Grab Bars Near Toilet,Grab Bars In Shower M2 PT-IP Current Condition Start: 03/03/23 11:53 Freq: NEEDED Status: Active Protocol: Document 03/03/23 11:04 AB (Rec: 03/03/23 12:[facility] Physical Therapy Current Condition Current Condition Evaluation Date 03/03/23 Treatment Diagnosis UTI; AMS; vacular dementia; difficulty in walking Onset Date 03/02/23 M3 PT-IP Subjective Start: 03/03/23 11:53 Freq: NEEDED Status: Active Protocol: Document 03/03/23 11:04 AB (Rec: 03/03/23 12:00 AB [email or web address]) Subjective Physical Therapy Visit Type Type Initial Evaluation Visit Start Time 11:04 Visit Stop Time 11:33 Total Visit Minutes 29 Number of CAN SLIDER Visits 0 Physical Therapy Visit Comments Patient Comments agreeable to do PT Therapy Pain Assessment Pain Present Pain Present Denied Pain M4 PT-IP Mobility and Gait Start: 03/03/23 11:53 Freq: NEEDED Status: Active Protocol: Document 03/03/23 11:04 AB (Rec: 03/03/23 12:00 AB [email or web address]) PT-Bed Mobility Assessment Supine to Sit Supine to Sit Standby Assistance PT-Transfer Assessment Sit to and From Stand Sit to and from Stand Contact Guard Assistance Equipment Transfer Assistive Device None,Front Wheeled Walker Orthotic/Prosthetic Devices or Brace: No Transfers Transfer Destination Chair Transfer Technique ambulated Transfer Ability Level of Assist Contact Guard Assistance,1 Person Assistance,Use of Upper Extremities Comments Mobility Comments pt with confusion but able to provide PLOF and home set up but questionnable accuracy. spouse came in mid PT session and confirm some info given by pt. Pt has vascular dementia and does not recognize his spouse. completed supine to sit SBA. able to sit on EOB SBA. sit to stand SBA and ambulated in room using FWW SBA to CGA ~ 40 ft. CGA during turning as pt can be impulsive and unsteady . assessed ambulation without AD and completed ~ 30 ft CGA with (+) LOB during turning and RLE crossing midline requiring CGA for steadiness and safety. pt agreed to sit up on the chair. positioned on chair with chair alarm on. call light and table placed within reach. Gait Assessment Gait Gait Assistance Required: Standby Assistance,Contact Guard Assist Distance (Feet) 40 Able to Maintain Weight Bearing Status Yes During Gait Assistive Devices Assistive Device None,Gait Belt,Front Wheeled Walker Orthotic/Prosthetic Devices or Brace: No Gait Deviations General Gait Pattern Decreased Stride Length, Decreased Feet Clearance Factors Limiting Gait Function Factors Limiting Gait Function Difficulty Following Directions,Poor Balance,Poor Safety Awareness PT-Balance Assessment Sitting Balance and Reactions Static Sitting Balance Ability Normal Dynamic Sitting Balance Ability Good Standing Balance and Reactions Static Standing Balance Ability Good Dynamic Standing Balance Ability Fair Device Used without AD M5 PT-IP Objective Assessments Start: 03/03/23 11:53 Freq: NEEDED Status: Active Protocol: Document 03/03/23 11:04 AB (Rec: 03/03/23 12:00 AB [email or web address]) Orientation Orientation/Cognition Level of Alertness Confusional State Orientation Name,Place Safety Awareness Decreased Safety Awareness Memory Description Short Term Impaired,Mcc Impaired Gross Range of Motion Lower Extremity ROM Assessment Within Functional Limits Strength Lower Extremity Strength Assessment Within Functional Limits Sensation Assessment Sensation Gross Sensation WNL Muscle Tone Muscle Tone WNL Yes M6 PT-IP Treatment Start: 03/03/23 11:53 Freq: NEEDED Status: Active Protocol: Document 03/03/23 11:04 AB (Rec: 03/03/23 12:00 AB [email or web address]) Physical Therapy Treatment Education Education Provided Safety M7 PT-IP Assessment and Plan Start: 03/03/23 11:53 Freq: NEEDED Status: Active Protocol: Document 03/03/23 11:04 AB (Rec: 03/03/23 12:00 AB [id number]) PT Summary Assessment and Plan Potential Rehabilitation Potential Fair Status of Condition at Evaluation Evolving Summary Impairments Balance,Coordination,Cognition ,Bed Mobility,Transfers,Gait, Activity Tolerance Assessment Summary pt requiring SBA to CGA with ambulation using FWW and CGA without AD with (+) LOB. Recommending use of FWW at this time. spouse will be able to assist pt at home. will continue to assess progress. Goals Bed Mobility Goal Independent Transfer Goal Independent,Cane,Front Wheeled Walker Gait Goal Independent,Cane,Front Wheel Walker Gait Distance 300 Days to Meet Goals 5 Frequency of Treatment Frequency Of Treatment Once a Day Treatment Plan Physical Therapy Treatment Plan Bed Mobility Training,Transfer Training,Gait Training, Therapeutic Exercise,Balance Retraining,Discharge Planning, Hot or Cold Pack,Neuromuscular Re-ed,Coordination Retraining Precautions Other Precautions falls Recommendations To Nursing Amount of Assist Needed 1 Person Assist Discharge Recommendations PT Discharge Recommendations Home with Assistance Transportation Needs at Discharge Private Vehicle
[2023-03-03] MEDS: MULTIVITAMIN 1 TABLET 1 TAB PO (11:56)
--- NOTE | 2023-03-03 12:04 | CM.DPC ---
DCP Cont: Met with patient's spouse in a private waiting area, as attempted to discuss care needs in front of patient, but was getting agitated, calls his spouse Pankaj. Spouse, Kimber, has had hired caregivers in the home, Eve Guajardo, but due to agitation, and fear of behaviors by caregiver, came to the hospital. Patient is currently being treated for UTI. Spouse is employed at the [employer], but is on [place] looking for memory care for her spouse. So far,she has meetings tomorrow, with [facility] (she asked if records could be sent), asked Hina to send over referral. She is also looking into [facility] (has a waiting list). Let her know that patient most likely will be medically ready for discharge tomorrow, she is aware. Her plans are to have her neighbor stay with patient while she goes and tours these facilities. Discussed home health, stated, patient did have [facility], was supposed to see their DOUBLE CUTTER. Let her know that this DC Mobile Designer can send a referral over to [facility]. Spouse was hoping that they could remove catheter while he is here to see if he can void, since they were supposed to do that at his urology appointment next week with Dr. Almonte. Let her know that this DC Mobile Designer can ask hospitalist. Spoke to Dr. Rhodes, is prepared to remove catheter today to see if he can void. Let him know that there is a plan for patient to go home tomorrow with [facility], but that spouse is continuing to tour facilities. P: DCP to continue to follow. Plan is home tomorrow if medically stable with [facility]. Alejandra Thomason RN/Hoof And Shoe Inspector
[2023-03-03 14:00] VITALS: BP 123/69; PULSE 76; RESP 20; TEMP 36.9; O2SAT 97
[2023-03-03] MEDS: DIVALPROEX ER 250 MG TAB PO (19:25)
[2023-03-03] MEDS: QUETIAPINE 25 MG TABLET PO (19:25)
[2023-03-03] MEDS: MELATONIN 3 MG TABLET PO (19:25)
[2023-03-03] MEDS: MIRTAZAPINE 15 MG TABLET 7.5 MG PO (19:26)
[2023-03-03] MEDS: INSULIN GLARGINE 100 UNIT/ML 3ML PEN 14 UNIT SUBCUT (19:28)
[2023-03-03 21:49] VITALS: BP 131/70; PULSE 78; RESP 18; TEMP 36.4; O2SAT 97
[2023-03-03] MEDS: HALOPERIDOL 5 MG/ML VIAL IV (23:45)
[2023-03-04] MEDS: HALOPERIDOL 5 MG/ML VIAL 2 MG IV ×4 (00:04→14:15)
[2023-03-04 06:00] VITALS: BMI 26.2
[2023-03-04 09:00] VITALS: BP 159/72; PULSE 74; RESP 18; TEMP 36.4; O2SAT 99
[2023-03-04] MEDS: TAMSULOSIN 0.4 MG CAPSULE PO (09:37)
[2023-03-04] MEDS: ENOXAPARIN 40 MG/0.4 ML SYRINGE SUBCUT (09:37)
[2023-03-04] MEDS: MULTIVITAMIN 1 TABLET 1 TAB PO (09:38)
[2023-03-04] MEDS: FOSFOMYCIN 3 GM PACKET PO (09:38)
[2023-03-04] MEDS: METFORMIN XR 500 MG TABLET PO (09:38)
[2023-03-04] MEDS: ATORVASTATIN 20 MG TABLET 80 MG PO (09:38)
[2023-03-04] MEDS: ASPIRIN 81 MG CHEW TAB 162 MG PO (09:38)
[2023-03-04 09:39] VITALS: BP 159/72; PULSE 71
[2023-03-04] MEDS: METOPROLOL ER 50 MG TABLET PO (09:39)
--- NOTE | 2023-03-04 11:47 | CM.DPC ---
DCP Cont: Patient is discharging home today. Called [facility], and left Jeannie Durand a message. Referral was sent yesterday, they can accept. Patient will get RN, P.T, O.T, SENIOR COUNSEL [employer]. Mart was re-inserted, attempted to see if he could void without it, and was unable. Patient was agitated, combative, during insertion. Had a one on one sitter this morning. Spouse is touring several of the memory care facilities today. She will have her neighbor stay with patient while she does this. Sent Anyannie Cárdenasmatt the referral yesterday. P: Patient is discharging home with [facility] today, faxing over orders, DC Summary, and face to face. Alejandra Thomason RN/Hotel Valet Attendant
--- NOTE | 2023-03-04 16:42 | PT-IP ANOTE ---
Due to high census was unable to see today for PT. PT will attempt to see tomorrow.
--- NOTE | 2023-03-04 17:19 | PC.NURSE ---
Pt discharged home at 1715, escorted off floor in wheelchair accompanied by family members and hospital staff. IV removed, discharge teaching provided to spouse including follow up appointment. Knife retrieved from safe and returned to patient. All belongings left the floor with patient.
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
== END 2023-03-04 17:21 | disposition home health service (06) ==
LOC: ED 13:45 → AC 14:16
PROVIDERS: Admitting Provider Neuromusculoskeletal Medicine, Sports Medicine; Emergency Provider Emergency Medicine; PCP Family Medicine; Referring Provider Emergency Medicine; Visit Provider Neuromusculoskeletal Medicine, Sports Medicine
DX: N39.0 Urinary tract infection, site not specified (principal); R41.0 Disorientation, unspecified; G30.9 Alzheimer's disease, unspecified; F02.80 Dementia in other diseases classified elsewhere, unspecified severity, without behavioral disturbance, psychotic disturbance, mood disturbance, and anxiety; E11.9 Type 2 diabetes mellitus without complications; H91.90 Unspecified hearing loss, unspecified ear
CPT/HCPCS: 36415; 70450; 71045; 80053; 81001; 82550; 82962; 83605; 84145; 84484; 85025; 86140; 87040; 87077; 87086; 87186; 87633; 93005; 96365; 96372; 96375; 96376; 97162; 99283; 99284; G0378; J0696; J1630; J1650; J1815

== ENCOUNTER → 2023-03-20 08:17 | Outpatient (CLI) | payer OTHER, MEDICARE, SELFPAY ==
[2023-03-04 06:00] VITALS: BMI 26.2
== END ==
PROVIDERS: PCP Family Medicine; Referring Provider Internal Medicine Critical Care Medicine; Visit Provider Internal Medicine Critical Care Medicine
DX: J45.909 Unspecified asthma, uncomplicated (principal)
CPT/HCPCS: 94060; 94726; 94729